=== PATIENT | male | born 1985 | race Two or more races ===

== ENCOUNTER 2019-11-01 20:47 | Emergency (ER) | payer OTHER ==
[~2019-11-01] VITALS: Ht 167.6 cm; Wt 76.0 kg
[2019-11-01 20:53] VITALS: BP 154/95
--- NOTE | 2019-11-01 21:05 | NUR ---
INTERTMITTENT FLANK AND BACK RASH W/ SCABBING SINCE per triage note
[2019-11-01] MEDS ORDERED: ONDANSETRON ODT 4 MG ONE (21:14)
[2019-11-01] MEDS ORDERED: HYDROcodone/APAP 5/325 TABLET ONE (21:14)
[2019-11-01] MEDS ORDERED: ONDANSETRON ODT 8 MG ONE (21:15)
[2019-11-01] MEDS ORDERED: HYDROcodone/APAP 5/325 TABLET PO ONE (21:30)
[2019-11-01] MEDS ORDERED: ONDANSETRON ODT 8 MG PO ONE (21:30)
== END 2019-11-01 21:57 | disposition home or self-care (01) ==
LOC: ED 21:56
DX: B02.9 Zoster without complications (principal); M54.9 Dorsalgia, unspecified; Z90.49 Acquired absence of other specified parts of digestive tract
CPT/HCPCS: 99283; Q0162

== ENCOUNTER 2020-01-12 16:57 | Emergency (ER) | payer OTHER ==
[~2020-01-12] VITALS: Ht 167.6 cm; Wt 75.4 kg
--- NOTE | 2020-01-12 17:42 | NUR ---
PT AMBULATED TO ROOM. CHANGED INTO GOWN, CALL LIGHT WITHIN REACH, RESTING ON GURNEY, DENIES ADDITIONAL NEEDS AT THIS TIME. PT ON MONITOR, GIVEN WARM BALNKET FOR COMFORT, [email or web address].
--- NOTE | 2020-01-12 18:19 | NUR ---
pt resting in gurney, NAD, denies additional needs, even and unlabored respirations, call light within reach, WCTM.
[2020-01-12] MEDS ORDERED: ALBUTEROL/IPRATROPIUM 2.5MG/0.5MG, 3 ML ONE (18:28)
--- NOTE | 2020-01-12 19:06 | NUR ---
bedside report to Adonis SHAFFER, pt care transferred at this time.
[2020-01-12 19:11] VITALS: BP 119/90
== END 2020-01-12 19:19 | disposition home or self-care (01) ==
LOC: ED 19:07
DX: J45.909 Unspecified asthma, uncomplicated (principal); R06.02 Shortness of breath; F17.200 Nicotine dependence, unspecified, uncomplicated; Z90.49 Acquired absence of other specified parts of digestive tract
CPT/HCPCS: 71045; 93005; 94640; 99283

== ENCOUNTER 2020-02-26 21:30 | Emergency (ER) | payer SELFPAY ==
[~2020-02-26] VITALS: Ht 167.6 cm; Wt 74.8 kg
[2020-02-26 21:41] VITALS: BP 136/102
--- NOTE | 2020-02-26 21:58 | NUR ---
PT PRESENTS TO ED WITH CHEST PRESSURE AND REPORTED INCREASED SOB X LAST COUPLE DAYS. PT CHANGED INTO GOWN AND ATTACHED TO VS AND CARDIAC MONITORS. VSS AT THIS TIME. LOBO ANDUJAR AT FOR PT HISTORY AND ASSESSMENT. PT VERBALIZES UNDERSTANDING OF ER PROCESS AND POC. CALL LIGHT IS WITHIN REACH AT THIS TIME.
[2020-02-26] MEDS ORDERED: ALBUTEROL/IPRATROPIUM 2.5MG/0.5MG, 3 ML ONE (22:17)
[2020-02-26] MEDS ORDERED: ALBUTEROL/IPRATROPIUM 2.5MG/0.5MG, 3 ML NPPB ONE (22:30)
--- NOTE | 2020-02-26 23:05 | NUR ---
DC EDUCATION PROVIDED, PT DEMONSTRATES UNDERSTANDING. PT AMBULATED STEADILY TO DC WITH RN
== END 2020-02-26 23:07 | disposition home or self-care (01) ==
LOC: ED 22:15
DX: J45.909 Unspecified asthma, uncomplicated (principal); R07.89 Other chest pain; R06.02 Shortness of breath; R06.00 Dyspnea, unspecified
CPT/HCPCS: 71045; 93005; 94640; 99283; J7512

== ENCOUNTER 2020-07-21 01:42 | Emergency (ER) | payer SELFPAY ==
[~2020-07-21] VITALS: Ht 165.1 cm; Wt 71.0 kg
[2020-07-21] MEDS ORDERED: ACETAMINOPHEN 500 MG TABLET ONE (03:53)
[2020-07-21] MEDS ORDERED: DIAZEPAM 5 MG TABLET ONE (03:53)
[2020-07-21] MEDS ORDERED: KETOROLAC 30 MG/1 ML ONE (03:53)
[2020-07-21] MEDS ORDERED: DIAZEPAM 5 MG TABLET PO ONE (04:00)
[2020-07-21] MEDS ORDERED: ACETAMINOPHEN 500 MG TABLET PO ONE (04:00)
[2020-07-21] MEDS ORDERED: KETOROLAC 30 MG/1 ML IVPush ONE (04:00)
[2020-07-21 05:04] VITALS: BP 117/69
--- NOTE | 2020-07-21 05:05 | NUR ---
D/c discussed with pt, including valium script, work restrictions, and f/u care. Pt verbalizes understanding. Ambulatory with steady gait at d/c. Pt states will pick him up from ED. VSS.
== END 2020-07-21 05:12 | disposition home or self-care (01) ==
LOC: ED 05:07
DX: S16.1XXA Strain of muscle, fascia and tendon at neck level, initial encounter (principal); M25.511 Pain in right shoulder; M54.2 Cervicalgia; M54.6 Pain in thoracic spine; J45.909 Unspecified asthma, uncomplicated; Z90.49 Acquired absence of other specified parts of digestive tract; X58.XXXA Exposure to other specified factors, initial encounter; Y93.89 Activity, other specified; Y92.89 Other specified places as the place of occurrence of the external cause; Y99.8 Other external cause status
CPT/HCPCS: 73030; 96374; 99283; J1885